=== PATIENT | female | born 1985 | race Asian ===

== ENCOUNTER 2019-12-29 01:15 | Inpatient (IN) | payer OTHER ==
[2019-12-29] MEDS ORDERED: OXYTOCIN 20 UNITS in 0.9% NS 20 UNIT/1,000 ML INFUS.BAG IV ONE ×2 (01:42→08:25)
[2019-12-29] MEDS ORDERED: WITCH HAZEL 50% (TUCKS) 40 PAD/JAR PAD TP PRN (01:42)
[2019-12-29] MEDS ORDERED: BENZOCAINE 20% 57 GM BOTTLE TP PRN (01:42)
[2019-12-29] MEDS ORDERED: BISACODYL 10 MG SUPP.RECT PR PRN (01:42)
[2019-12-29] MEDS ORDERED: BENZOCAINE 28 GM HEMORRHOIDAL OINTMENT PR PRN (01:42)
[2019-12-29] MEDS ORDERED: METHYLERGONOVINE MALEATE 0.2 MG/1 ML AMP IM PRN ×2 (01:42→06:23)
[2019-12-29] MEDS ORDERED: ELECTROLYTE-148 SOLN 1,000 ML IV SCH (01:45)
[2019-12-29 02:04] VITALS: BMI 30.9
[2019-12-29 02:11] LABS: BASO % 0.6 % (0-2.0); EOS % 0.1 % (0-4.5); HEMATOCRIT 35.8 % (32.4-45.2); HEMOGLOBIN 11.5 GM/dL (10.7-15.3); LYMPH % 12.8 % (8-40); MCHC 32.1 g/dl (32.0-36.0); MEAN PLT VOLUME 8.5 fl (7.5-11.1); MONO % 6.3 % (3.8-10.2); NEUT % 80.2 % (42.8-82.8); PLATELET COUNT 261 K/MM3 (134-434); RBC 4.26 M/mm3 (3.60-5.2); RDW 15.7 % (11.6-15.6); WHITE BLOOD COUNT 11.5 K/mm3 (4.0-10.0)
[2019-12-29 02:25] LABS: INR 1.03 (0.83-1.09); PROTHROMBIN TIME (PATIENT) 12.1 SEC (9.7-13.0)
[2019-12-29 02:28] LABS: ACTIVATED PTT 32.3 SECONDS (25.2-36.5)
[2019-12-29 02:33] LABS: BLOOD UREA NITROGEN 9.8 mg/dL (7-18); CALCIUM 8.9 mg/dL (8.5-10.1); CREATININE 0.8 mg/dL (0.55-1.3); POTASSIUM 4.1 mmol/L (3.5-5.1)
--- NOTE | 2019-12-29 03:45 | HP ---
Past Medical History - Admission Chief Complaint: in labor History of Present Illness: called to pt who is 8-9 cm. multip at term, 39 wks 6 days. History Source: Patient, Medical Record Limitations to Obtaining History: No Limitations - Past Medical History ENDOCRINOLOGIST: No: Alzheimer's, CVA, Dementia, Migraine, Multiple Sclerosis, Peripheral Neuropathy, Parkinson's, Seizure, Syncope, TIA, Vertigo, Other Cardiovascular: No: AFIB, Aneurysm, Aortic Insufficiency, Aortic Stenosis, CAD, CHF, Deep Vein Thrombosis, HTN, Hyperlipdemia, NM, Mitral Insufficiency, Mitral Stenosis, Murmur, Pulmonary Hypertension, Other Pulmonary: No: Asthma, Bronchitis, Cancer, COPD, O2 Dependent, Pneumonia, Previously Intubated, Pulmonary Embolus, Pulmonary Fibrosis, Sleep Apnea, Other Gastrointestinal: No: Ascites, Cancer, Constipation, Crohn's Disease, Diverticulitis, Diverticulosis, Esophageal Varices, Gastritis, GERD, GI Bleed, Hemorrhoids, Hiatal Hernia, Inflamatory Bowel Disease, Irritable Bowel Disease, Pancreatitis, Peptic Ulcer Disease, Ulcerative Colitis, Other Hepatobiliary: No: Cirrhosis, Cholelithiasis, Cholecystitis, Choledocholithiasis, Hepatitis A, Hepatitis B, Hepatitis C, Other Renal/: No: Renal Failure, Renal Inusuff, BPH, Cancer, Hematuria, Hemodialysis, Neurogenic Bladder, Renal Calculi, UTI, Other Reproductive: No: Ectopic , Endometriosis, Fibroids, PID, Polycystic Ovary Syndrome, Postmenopausal, Other ...: 3 ...Para: 2 ...Term: 2 ...: 0 ...Spon : 0 ...Induced : 0 ...Multiple Gestation: 0 ...EDC by Sono: 12/30/19 Heme/Onc: No: Anemia, B12 Deficiency, Bleeding Disorder, Cancer, Current Chemotherapy, Current Radiation Therapy, Hemochromatosis, Hypercoaguable State, Myeloproliferative Synd, Sickle Cell Disease, Sickle Cell Trait, Thrombocytopenia, Other Infectious Disease: No: AIDS, C-Diff, Herpes Zoster, HIV, MRSA, STD's, Tuberculosis, VREF, Other Psych: No: Addictions, Anxiety, Bipolar, Depression, Panic, Psychosis, Luisa izophrenia, Other Musculoskeletal: No: Bursitis, Chronic low back pain, Hemiparesis, Hemiplegia, Osteoarthritis, Paraplegia, Other Rheumatology: No: Fibromyalgia, Gout, Lupus, Rheumatoid Arthritis, Sarcoidosis, Vasculitis, Other ENT: No: Allergic Rhinitis, Sinusitis, Other Endocrine: No: [place]'s Disease, [place]'s Disease, Diabetes Insipidus, Diabetes Mellitus, Hyperparathyroidism, Hyperthyroidism, Hypothyroidism, Osteopenia, SIADH, Other Dermatology: No: Basal Cell, Cellulitis, Eczema, Melanoma, Psoriasis, Squamous Cell, Other - Past Surgical History Past Surgical History: Yes: None Hx Myomectomy: No Hx Transabdominal Cerclage: No - Smoking History Smoking history: Never smoked Have you smoked in the past 12 months: No - Alcohol/Substance Use Hx Alcohol Use: No Home Medications - Allergies Allergies/Adverse Reactions: Allergies Allergy/AdvReac Type Severity Reaction Status Date / Time No Known Allergies Allergy Verified 12/29/19 01:39 - Home Medications Home Medications: Ambulatory Orders Mv-Mn/Iron/FA/Herbal/Digestive [ One Tablet] 1 each PO DAILY 12/25/19 Family Medical History Family History: Unable to Obtain, Unremarkable Review of Systems - Review of Systems Constitutional: reports: No Symptoms Eyes: reports: No Symptoms HENT: reports: No Symptoms Neck: reports: No Symptoms Cardiovascular: reports: No Symptoms Respiratory: reports: No Symptoms Gastrointestinal: reports: No Symptoms Genitourinary: reports: No Symptoms Breasts: reports: No Symptoms Reported Musculoskeletal: reports: No Symptoms Integumentary: reports: No Symptoms Neurological: reports: No Symptoms Endocrine: reports: No Symptoms Hematology/Lymphatic: reports: No Symptoms Psychiatric: reports: No Symptoms Physical Exam - Maternity Vital Signs: Vital Signs Temperature 98.1 F 12/29/19 03:00 Pulse Rate 70 12/29/19 03:00 Respiratory Rate 20 12/29/19 03:00 Blood Pressure 135/73 12/29/19 03:00 O2 Sat by Pulse Oximetry (%) Constitutional: Yes: Well Nourished, No Distress, Calm Eyes: Yes: WNL, Conjunctiva Clear, EOM Intact HENT: Yes: WNL, Atraumatic, Normocephalic Neck: Yes: WNL, Supple, Trachea Midline Cardiovascular: Yes: WNL, Regular Rate and Rhythm Breast(s): Yes: WNL - Abdominal Exam/OB Fundal Height: 40 Number of Fetuses: Single Presentation: Vertex Contractions: Yes Regularity: Irregular Intensity: Mod/Strong Monitor Mode: External Heart Rate (range): 140 Heart Rate Location: [facility] Category: I Accelerations: Uniform Decelerations: None - Vaginal Exam/OB Vaginal Bleediing: No Dilatation (cm): 9 Effacement (%): 100 Amniotic Membrane Status: Intact Nitrazine Test: Negative Presentation: Vertex/Position Station: -1 - Physical Exam Musculoskeletal: Yes: WNL Extremities: Yes: WNL Integumentary: Yes: WNL ...Motor Strength: WNL Psychiatric: Yes: WNL - Labs Lab Results: CBC, BMP 12/29/19 01:50 12/29/19 01:50 Problem List - Problems (1) Term Code(s): Z34.90 - ENCNTR FOR SUPRVSN OF NORMAL , UNSP, UNSP TRIMESTER (2) Active labor at term Code(s): VVR9960 - Assessment/Plan AROM clear AF. Expecting vaginal delivery.
[2019-12-29] MEDS ORDERED: OXYTOCIN 30 UNITS in 0.9% NS 30 UNIT/500 ML INFUS.BAG IVPB ONE (04:18)
--- NOTE | 2019-12-29 05:18 | PN ---
Progress Note, Labor Vaginal Exam #2 Labor Exam Date: 12/29/19 Labor Exam Time: 03:58 Dilatation: 10 Amniotic Membrane Status: Ruptured Presentation: Vertex/Position Station: -1 (pushing)
--- NOTE | 2019-12-29 05:21 | PN ---
Progress Note, Labor Vaginal Exam #3 Labor Exam Date: 12/29/19 Labor Exam Time: 04:45 Station: -1 (Pushing very inefficiently. Working with pt. Direct OP.)
--- NOTE | 2019-12-29 05:24 | PN ---
Progress Note, Labor Vaginal Exam #4 Labor Exam Date: 12/29/19 Labor Exam Time: 05:10 Heart Rate (range): N Station: -1 (Pt is exhausted. Declines vacuum assistance. Explained. Pt. states she wants a section. Section called. D/w neonatology, anesthesia. Discussed. Consent signed.)
[2019-12-29] MEDS ORDERED: morphine SULFATE/PF 0.5 MG/ML (2cc Syringe - QUVA) ONE (05:27)
[2019-12-29] MEDS ORDERED: PHENYLEPHRINE HCL 10 MG/1 ML SINGLE DOSE VIAL ONE (05:28)
[2019-12-29] MEDS ORDERED: KETOROLAC TROMETHAMINE 30 MG/1 ML VIAL ONE (05:28)
[2019-12-29] MEDS ORDERED: ceFAZolin SODIUM 1 GM VIAL ONE (05:28)
[2019-12-29] MEDS ORDERED: OXYTOCIN 10 UNITS/ML VIAL ONE (05:28)
[2019-12-29] MEDS ORDERED: morphine SULFATE/PF 0.5 MG/ML (2cc Syringe - QUVA) EP ONE (05:36)
--- NOTE | 2019-12-29 06:21 | PN ---
Delivery - Delivery Section: Primary Type of Anesthesia: Spinal Episiotomy/Laceration: None EBL (cc): 550 Delivery, Single - Stages of Labor Date 1st Stage Initiatied: 12/28/19 Time 1st Stage Initiated: 21:00 Date 2nd Stage Initiated: 12/29/19 Time 2nd Stage Initiated: 04:00 Date of Delivery: 12/29/19 Time of Delivery: 05:54 Time Placenta Delivered: 05:55 - Condition of Infant Dye House Supervisor/Wardrobe Consultant Present: Yes Name: Curt Bruce Gender: Male Weight: 8 lb 7 oz Position: OP Total Hours ROM (Hrs/Mins): 2 hours 25 minutes - 1 Minute Total Score: 8 5 Minutes Total Score: 9 - Feeding Plan Initial Plan: Exclusive throughout hospitalization Remarks - Remarks Remarks: Failure to decend. Direct OP. Uneventful low transverse c/section.
[2019-12-29] MEDS ORDERED: oxyCODONE HCL 5 MG TABLET PO PRN (06:23)
[2019-12-29] MEDS ORDERED: IBUPROFEN 600 MG TABLET (FP) PO PRN (06:23)
[2019-12-29] MEDS ORDERED: OXYTOCIN 20 UNITS in 0.9% NS 1000 ML INFUS.BAG IV ONE ×2 (06:33→08:15)
[2019-12-29] MEDS ORDERED: ONDANSETRON 4 MG/2 ML VIAL IVPUSH PRN (06:46)
[2019-12-29] MEDS ORDERED: ACETAMINOPHEN 1000 MG/100 ML VIAL (NON FORMULARY) IVPB ONE (06:48)
[2019-12-29] MEDS ORDERED: LACTATED RINGERS SOLUTION 1,000 ML IV SCH (07:00)
--- NOTE | 2019-12-29 11:37 | OP ---
DATE OF OPERATION: DATE OF DICTATION: 12/29/2019 PREOPERATIVE DIAGNOSES: 1. Intrauterine at term. 2. Failure to descend. 3. Direct occiput posterior. POSTOPERATIVE DIAGNOSES: 1. Intrauterine at term. 2. Failure to descend. 3. Direct occiput posterior. PROCEDURE: Primary low segment transverse section. SURGEON: Ghassan Pollard MD MANAGER CLINICAL RESEARCH: KAYLEEN Andre ANESTHESIA: Spinal. ANESTHESIOLOGIST: Mango Horton MD NEONATOLOGY: Curt Bruce MD DESCRIPTION OF PROCEDURE: Under excellent block in dorsal supine position with left lateral tilt, patient was prepped and draped in a normal fashion. Uterus was entered through Pfannenstiel incision that was carried through layers until fascia was opened transversely as well. Recti muscles were dissected off the fascia and in the midline. Peritoneum was entered sharply and opened vertically. Term uterus was noted with normal adnexa. Baby's head was wedged deeply in the pelvis with elongated caput. It was directly with the face up. Bladder flap was opened and peeled off the lower uterine segment. Hysterotomy was opened transversely, and male live was delivered, cried, and breathed spontaneously. Baby was handed over to the college athletic director. Apgars were 8 and 9, and weight was 8 pounds 7 ounces. Placenta was removed, and uterine cavity was cleaned. Hysterotomy was closed with a single layer, Biosyn 0, interlocking, running suture. Hemostasis was excellent after additional mattress suture was placed in the midline. Uterus was placed in the midline. Lavage was carried out. Hemostasis was rechecked and was excellent. Count was correct. Abdomen was closed in layers with peritoneum closed with Biosyn 2-0, fascia was Vicryl 1 running sutures. Subcutaneous tissue was approximated with Biosyn 2-0 interrupted suture, and skin was closed with 4-0 V-Loc subcuticular suture and Steri-Strips. Sterile dressing was applied. Blood loss was 550 mL. Patient withstood the procedure very well and was transferred to PACU comfortable and stable. GHASSAN POLLARD MD [id number]
[2019-12-29] MEDS: ACETAMINOPHEN 1000 MG/100 ML VIAL (NON FORMULARY) IVPB PRN (20:39)
[2019-12-30] MEDS: ACETAMINOPHEN 1000 MG/100 ML VIAL (NON FORMULARY) IVPB PRN (05:54)
[2019-12-30] MEDS ORDERED: BISACODYL 10 MG SUPP.RECT RC PRN (06:24)
[2019-12-30 07:53] LABS: BASO % 0.3 % (0-2.0); EOS % 0.3 % (0-4.5); HEMATOCRIT 28.2 % (32.4-45.2); HEMOGLOBIN 9.1 GM/dL (10.7-15.3); LYMPH % 12.3 % (8-40); MCH 27.2 pg (25.7-33.7); MCHC 32.2 g/dl (32.0-36.0); MEAN CELL VOLUME 84.5 fl (80-96); MEAN PLT VOLUME 8.1 fl (7.5-11.1); MONO % 6.3 % (3.8-10.2); NEUT % 80.8 % (42.8-82.8); PLATELET COUNT 217 K/MM3 (134-434); RBC 3.34 M/mm3 (3.60-5.2); RDW 15.9 % (11.6-15.6); WHITE BLOOD COUNT 14.2 K/mm3 (4.0-10.0)
--- NOTE | 2019-12-30 09:17 | PN ---
Progress Note (SOAP) - Subjective Chief Complaint: Pt doing well - Current Medications Current Medications: Active Medications Acetaminophen (Tylenol -) 650 mg PO Q4H PRN PRN Reason: FEVER Acetaminophen (Ofirmev Injection -) 1,000 mg IVPB Q8H PRN PRN Reason: PAIN LEVEL 6-10 Last Admin: 12/30/19 05:54 Dose: 1,000 mg Benzocaine (Americaine 20% [place] -) 1 spray TP PRN PRN PRN Reason: Pain - Topical Benzocaine (Americaine Ointment -) 1 applic ID PRN PRN PRN Reason: Pain - Topical Bisacodyl (Dulcolax Suppository -) 10 mg ID PRN PRN PRN Reason: CONSTIPATION Diphtheria/Tetanus/Acell Pertussis (Boostrix -) 0.5 ml IM .ONCE ONE Stop: 12/30/19 10:01 Parenteral Electrolytes (Plasma-Lyte 148 -) 1,000 mls @ 125 mls/hr IV [facility] Last Admin: 12/29/19 01:45 Dose: 125 mls/hr Lactated Ringer's (Lactated Ringers Solution) 1,000 mls @ 75 mls/hr IV [facility] Last Admin: 12/29/19 08:03 Dose: Not Given Ibuprofen (Motrin -) 600 mg PO Q4H PRN PRN Reason: PAIN LEVEL 1 - 3 Methylergonovine Maleate (Methergine Injection -) 0.2 mg IM Q4H PRN PRN Reason: EXCESSIVE BLEEDING Ondansetron HCl (Zofran Injection) 4 mg IVPUSH Q6H PRN PRN Reason: NAUSEA AND/OR VOMITING Oxycodone HCl (Roxicodone -) 5 mg PO Q4H PRN PRN Reason: PAIN LEVEL 4 - 6 Simethicone (Mylicon -) 80 mg PO Q4H PRN PRN Reason: GAS [place]ling/Glycerin (Tucks Pads -) 1 pad TP PRN PRN PRN Reason: Pain - Topical - Objective Vital Signs: Vital Signs Temperature 98.3 F 12/30/19 09:00 Pulse Rate 71 12/30/19 09:00 Respiratory Rate 20 12/30/19 09:00 Blood Pressure 118/66 12/30/19 09:00 O2 Sat by Pulse Oximetry (%) 99 12/29/19 08:00 Constitutional: Yes: Well Nourished, No Distress Gastrointestinal: Yes: WNL, Soft ....Post : Yes: Uterus firm, Uterus non-tender Wound/Incision: Yes: Clean/Dry, Well Approximated, Steri Strips Labs Lab Results: CBCD WBC 14.2 K/mm3 (4.0-10.0) H 12/30/19 07:28 RBC 3.34 M/mm3 (3.60-5.2) L 12/30/19 07:28 Hgb 9.1 GM/dL (10.7-15.3) L 12/30/19 07:28 Hct 28.2 % (32.4-45.2) L D 12/30/19 07:28 MCV 84.5 fl (80-96) 12/30/19 07:28 MCHC 32.2 g/dl (32.0-36.0) 12/30/19 07:28 RDW 15.9 % (11.6-15.6) H 12/30/19 07:28 Plt Count 217 K/MM3 (134-434) 12/30/19 07:28 MPV 8.1 fl (7.5-11.1) 12/30/19 07:28 CMP Sodium 137 mmol/L (136-145) 12/29/19 01:50 Potassium 4.1 mmol/L (3.5-5.1) 12/29/19 01:50 Chloride 105 mmol/L (98-107) 12/29/19 01:50 Carbon Dioxide 21 mmol/L (21-32) 12/29/19 01:50 Anion Gap 11 MMOL/L (8-16) 12/29/19 01:50 BUN 9.8 mg/dL (7-18) 12/29/19 01:50 Creatinine 0.8 mg/dL (0.55-1.3) 12/29/19 01:50 Random Glucose 92 mg/dL (74-106) 12/29/19 01:50 Calcium 8.9 mg/dL (8.5-10.1) 12/29/19 01:50 Assessment/Plan POD1 Doing well Plan continue present management
--- NOTE | 2019-12-30 09:54 | PN ---
Progress Note (short form) - Note Progress Note: POD #1 primary C/S with spinal anesthesia with intrathecal duramorph. Patient doing well, pain well controlled on current pain regimen. Denies n/v/pruritus. Ambulating without issue. All questions answered.
[2019-12-30] MEDS ORDERED: DIPHTH,PERTUSS(ACELL),TET 0.5 ML DISP.SYRIN IM ONE (10:00)
[2019-12-30] MEDS: ACETAMINOPHEN 325 MG TABLET (FP) PO PRN (12:01)
[2019-12-30] MEDS: SIMETHICONE 80 MG TAB.CHEW (FP) PO PRN (12:01)
[2019-12-30] MEDS: IBUPROFEN 600 MG TABLET (FP) PO PRN (12:01)
[2019-12-31] MEDS: IBUPROFEN 600 MG TABLET (FP) PO PRN ×4 (00:03→22:01)
[2019-12-31] MEDS: ACETAMINOPHEN 325 MG TABLET (FP) PO PRN ×4 (00:03→22:01)
[2019-12-31] MEDS: SIMETHICONE 80 MG TAB.CHEW (FP) PO PRN ×4 (00:04→22:01)
--- NOTE | 2019-12-31 08:33 | PN ---
Post Note - Post Date of Delivery: 12/29/19 Vital Signs: Vital Signs - 24 hr 12/30/19 12/30/19 12/30/19 09:00 10:00 11:00 Temperature 98.3 F Pulse Rate 71 Respiratory 20 20 20 Rate Blood Pressure 118/66 12/30/19 21:06 Temperature 98.2 F Pulse Rate 77 Respiratory 20 Rate Blood Pressure 115/68 - Subjective Subjective: No Complaints - Objective Afebrile: Yes Breast: Not engorged Abdomen: Soft, Non-tender Uterus: Fundus firm Vagina: Scant lochia Extremities: Non-tender - Assessment/Plan (1) delivery delivered Assessment: Other (POD2) Plan: Routine Care
[2020-01-01] MEDS: IBUPROFEN 600 MG TABLET (FP) PO PRN (06:03)
[2020-01-01] MEDS: ACETAMINOPHEN 325 MG TABLET (FP) PO PRN (06:04)
[2020-01-01] MEDS: SIMETHICONE 80 MG TAB.CHEW (FP) PO PRN (06:04)
--- NOTE | 2020-01-01 07:58 | DS ---
Physical Exam-LIFE MANAGER Vital Signs: Vital Signs Temperature 97.8 F 01/01/20 02:00 Pulse Rate 60 01/01/20 02:00 Respiratory Rate 18 01/01/20 02:00 Blood Pressure 119/73 01/01/20 02:00 O2 Sat by Pulse Oximetry (%) 99 12/29/19 08:00 Constitutional: Yes: Well Nourished, No Distress Gastrointestinal: Yes: WNL, Soft ....Post : Yes: Uterus firm, Uterus non-tender Breast(s): Yes: WNL Edema: No Labs: CBC, BMP 12/30/19 07:28 12/29/19 01:50 Delivery - Delivery Section: Primary, Low Flap Transverse Type of Anesthesia: Spinal Episiotomy/Laceration: None EBL (cc): 550 Delivery, Single - Stages of Labor Date 1st Stage Initiatied: 12/28/19 Time 1st Stage Initiated: 21:00 Date 2nd Stage Initiated: 12/29/19 Time 2nd Stage Initiated: 04:00 Date of Delivery: 12/29/19 Time of Delivery: 05:54 Time Placenta Delivered: 05:55 Placenta: Yes: Spontaneous - Condition of Infant Employee Welfare Manager/Child And Family Services Worker Present: Yes Name: Curt Bruce Infant Gender: Male Weight: 8 lb 7 oz Position: OP Total Hours ROM (Hrs/Mins): 2 hours 25 minutes - 1 Minute Total Score: 8 5 Minutes Total Score: 9 - Feeding Plan Initial Plan: Exclusive throughout hospitalization Discharge Summary Problems reviewed: Yes Reason For Visit: ADMIT LABOR Current Active Problems Active labor at term (Acute) delivery delivered (Acute) Term (Acute) Procedures: Principal: Primary Section Hospital Course: unremarkable Condition: Good - Instructions Diet, Activity, Other Instructions: Physical activity Resume your normal everyday activity as tolerated no heavy lifting or exercise until seen by your surgeon. You may walk unlimited vangie of and climb stairs. You may resume driving the car when you feel safe and comfortable behind the wheel. No sexual activity as instructed. Wound care If you have a bandage, leave it on, and keep dry for 48-72 hours. After that time discard the outer bandage. If they are tapes on the skin under the out of bandage leave them in place. They will peel off in the next 7 to 10 days. Do Not Peel them off. You may shower the day after surgery. If there are tapes present on the skin, you may shower over them. Diet There are no dietary restrictions. Eat healthy, high-fiber foods. Drink 6 to 8 glasses of liquid each day. This will assist in keeping your bowels are regular. Pain management You may take Tylenol or acetaminophen or Ibuprofen (for example, Motrin, Advil etc.) from my pain prescription medication is ordered should be taken as prescribed for moderate to severe pain. Call MD for any of the following: Severe pain not relieved by medication Fever of 101 or higher Excessive bleeding or drainage on dressing Inability to urinate Disposition: HOME - Home Medications Comprehensive Discharge Medication List: Ambulatory Orders Mv-Mn/Iron/FA/Herbal/Digestive [ One Tablet] 1 each PO DAILY 12/25/19 Ibuprofen [Motrin -] 600 mg PO QID #28 tablet 12/29/19
[2020-01-01 08:18] LABS: BASO % 0.5 % (0-2.0); EOS % 2.5 % (0-4.5); HEMATOCRIT 28.4 % (32.4-45.2); HEMOGLOBIN 9.2 GM/dL (10.7-15.3); LYMPH % 18.3 % (8-40); MCH 27.5 pg (25.7-33.7); MCHC 32.5 g/dl (32.0-36.0); MEAN CELL VOLUME 84.5 fl (80-96); MEAN PLT VOLUME 7.6 fl (7.5-11.1); MONO % 9.2 % (3.8-10.2); NEUT % 69.5 % (42.8-82.8); PLATELET COUNT 280 K/MM3 (134-434); RBC 3.36 M/mm3 (3.60-5.2); RDW 15.7 % (11.6-15.6); WHITE BLOOD COUNT 8.6 K/mm3 (4.0-10.0)
[2020-01-01 11:13] VITALS: BP 122/68; PULSE 74; TEMP 97.9
--- NOTE | 2020-01-01 15:30 | PATH ---
Surgical Pathology Report Patient Name: BLANQUITA ELAINE Med. Rec. #: [id number] /Age/Gender: 1985 (Age: 34) / F Account: [id number] Location: [facility] OBS/LINOTYPE WORKER Taken: 12/29/2019 Received: 12/29/2019 Reported: 01/01/2020 Physicians: MD Connie Salomon M.D. Specimen(s) Received PLACENTA Clinical History , 02/05 and 03/13 Final Diagnosis PLACENTA, SECTION: 586 G THIRD TRIMESTER PLACENTA WITH TRIVASCULAR UMBILICAL CORD AND UNREMARKABLE PLACENTAL MEMBRANES. Electronically Signed Vanessa Richter M.D. Gross Description The specimen is received fresh labeled placenta and is a 586 gram, 23.0 x 21.0 x 2.0 cm. placenta with attached membranes and umbilical cord. The attached membranes are phipps, thick, cloudy and insert marginally. The umbilical cord measures 26 cm. in length and averages 1.1 cm. in diameter. The cord inserts centrally. No true knots or strictures are identified. Cut surface of the umbilical cord reveals 3 vessels. The surface is shin blue with moderate fibrin deposition and appropriate caliber vessels. The maternal surface is red-brown with focal defects. Sectioning reveals red-brown, spongy parenchyma. No lesions are identified. Cable Television Line Technician sections are submitted in three cassettes as follows: 1- membrane rolls and umbilical cord; 2-3- full thickness sections of placenta. /12/31/2019 [facility]12/31/2019
== END 2020-01-01 11:50 | disposition home or self-care (01) | DRG 788 ==
LOC: JDEL 01:15 → JLDR 01:35 → J3W 08:55
PROVIDERS: ADMIT Obstetrics & Gynecology; ATTEND Obstetrics & Gynecology
PROC: 10D00Z1 Extraction of Products of Conception, Low, Open Approach (ICD-10-PCS; principal; 2019-12-29)
DX: O75.81 Maternal exhaustion complicating labor and delivery (principal); O32.4XX0 Maternal care for high head at term, not applicable or unspecified; Z3A.39 39 weeks gestation of pregnancy; Z37.0 Single live birth
CPT/HCPCS: 36415; 80048; 85025; 85610; 85730; 86593; 86850; 86900; 86901; 90715; J0131